=== PATIENT | male | born 1995 | race African-American/Black ===

== ENCOUNTER 2017-10-08 08:16 | Emergency (ER) | payer SELFPAY ==
[~2017-10-08] VITALS: Ht 180.3 cm; Wt 65.0 kg
[~2017-10-08 08:16] MED LIST: CORTISPORIN OP3.5 GM OP; ZYRTEC10 M1 PO
[2017-10-08] MEDS ORDERED: EQ MAGNESIUM CI1 SOL PO (08:51)
[2017-10-08] MEDS ORDERED: MOTRIN400 MG PO (08:51)
[2017-10-08 08:55] VITALS: BP 108/67
== END 2017-10-08 09:01 | disposition home or self-care (01) | DRG 552 ==
LOC: ED 08:16
PROC: 0D9P3ZZ Drainage of Rectum, Percutaneous Approach (ICD-10-PCS; principal; 2017-10-08)
DX: M54.42 Lumbago with sciatica, left side (principal); K59.00 Constipation, unspecified; K64.5 Perianal venous thrombosis; X50.0XXA Overexertion from strenuous movement or load, initial encounter; Y93.H3 Activity, building and construction; Y92.89 Other specified places as the place of occurrence of the external cause